=== PATIENT | female | born 1960 | race Caucasian/White ===

== ENCOUNTER 2019-02-08 12:52 | Emergency (ER) | payer MEDICAID ==
[~2019-02-08] VITALS: Ht 170.2 cm; Wt 56.8 kg
[2019-02-08] MEDS ORDERED: morphine 2 MG/ML inj. syringe IV PRN (13:20)
[2019-02-08] MEDS ORDERED: TETanus/Pertussis (Acell)/Diphther VAC/PF (Tdap-Adult) 0.5ml syringe IM ONE (13:40)
[2019-02-08] MEDS ORDERED: ketamine 50 mg/ml 10ml vial IV ONE (13:50)
[2019-02-08] MEDS: LIDOcaine 1% 30ml preserv. free vial IJ ONE ×2 (14:04→14:28)
[2019-02-08] MEDS ORDERED: ACET-3068 PO (14:26)
[2019-02-08] MEDS ORDERED: ondansetron/PF 4mg/2ml inj IV ONE ×2 (14:30→15:30)
--- NOTE | 2019-02-08 15:34 | NUR ---
IV ZOFRAN NOT GIVEN. PIV HAS BEEN REMOVED. REORDERED MEDICATION ODT ZOFRAN
[2019-02-08] MEDS ORDERED: ondansetron 4mg rapidly disintigrating tab PO ONE (15:35)
[2019-02-08 16:23] VITALS: BP 130/86
== END 2019-02-08 16:31 | disposition home or self-care (01) ==
LOC: ER 12:52
DX: S52.592A Other fractures of lower end of left radius, initial encounter for closed fracture (principal); S52.692A Other fracture of lower end of left ulna, initial encounter for closed fracture; R11.2 Nausea with vomiting, unspecified; I10 Essential (primary) hypertension; F17.200 Nicotine dependence, unspecified, uncomplicated; Z56.0 Unemployment, unspecified; Z59.0 Homelessness; Z79.899 Other long term (current) drug therapy; W18.39XA Other fall on same level, initial encounter; Y93.89 Activity, other specified; Y92.89 Other specified places as the place of occurrence of the external cause; Y99.8 Other external cause status
CPT/HCPCS: 25605; 73110; 90471; 90715; 96374; 96375; 99152; 99285; J2270; J2405; J3490